=== PATIENT | female | born 1995 | race Caucasian/White ===

== ENCOUNTER 2019-07-03 11:55 | Emergency (ER) | payer SELFPAY ==
--- NOTE | 2019-07-03 12:04 | ED.PDOC ---
History of Present Illness - General Time Seen by Provider: 07/03/19 12:03 Source: patient Additional Information: 23yo F presents with headache, myalgia and fever onset 1-2 days. The patient reports intermittent chills and fever to 101 with associated body aches. She had two bouts of coughing over the past day, but no sustained cough or SOB. She is presently 12 weeks per her report. She has an established OBGYN and has had no complications to date. No known sick contacts. No recent travel. No other reported issues. - History of Present Illness Timing/Duration: yesterday Possible Cause: unknown cause Allergies/Adverse Reactions: Allergies NO KNOWN ALLERGY Allergy (Verified 07/03/19 12:18) Home Medications: Ambulatory Orders Methocarbamol [Robaxin] 750 mg PO BID PRN #20 tab 05/14/15 Metoprolol Succinate [Toprol XL] 25 mg PO QAM #20 tab 05/14/15 Potassium Chloride [K-Tab] 10 meq PO QAM #30 tab 05/14/15 Tramadol HCl 50 mg PO Q6H PRN #20 tab 05/14/15 Promethazine Tab [Phenergan Tablet] 25 mg PO Q4H PRN #12 tab 07/03/19 Review of Systems - Review of Systems Constitutional: States: chills, fever, weakness EENTM: Denies: ear pain, throat pain Respiratory: States: cough. Denies: short of breath Cardiology: Denies: chest pain, palpitations Gastrointestinal/Abdominal: Denies: abdominal pain, diarrhea, nausea, vomiting Genitourinary: Denies: dysuria, frequency Musculoskeletal: States: muscle pain. Denies: back pain, joint swelling, neck pain Skin: States: no symptoms reported Neurological: States: headache. Denies: numbness, weakness Endocrine: States: no symptoms reported Hematologic/Lymphatic: States: no symptoms reported Past Medical History (General) - Patient Medical History Hx Seizures: No Hx Stroke: No Hx Dementia: No Hx Asthma: No Hx of COPD: No Hx Cardiac Disorders: No Hx Congestive Heart Failure: No Hx Pacemaker: No Hx Hypertension: No Hx Thyroid Disease: No Hx Diabetes: No Hx Gastroesophageal Reflux: No Hx Renal Disease: No Hx Cancer: No Hx of HIV: No Hx Hepatitis C: No Hx MRSA: No - Vaccination History Hx Tetanus, Diphtheria Vaccination: Yes Hx Influenza Vaccination: No Hx Pneumococcal Vaccination: No - Social History Hx Tobacco Use: No Hx Chewing Tobacco Use: No Hx Alcohol Use: No Hx Substance Use: No Hx Substance Use Treatment: No Hx Depression: No Hx Physical Abuse: No Hx Emotional Abuse: No Hx Suspected Abuse: No - Female History Hx Last Menstrual Period: 03/23/12 Patient : - unsure Expected Date of Delivery:: 12/22/12 Family Medical History - Family History Mother Living Status: Still Living Hx Family Hypertension: Yes Hx Family;Other: tumors Physical Exam - Physical Exam General Appearance: Alert, Other - Mildly fatigued appearance Eye Exam: bilateral normal ENT Exam: normal ENT inspection Neck: non-tender, full range of motion, supple Respiratory: normal breath sounds, no respiratory distress, no accessory muscle use Cardiovascular/Chest: regular rate, rhythm, no edema Gastrointestinal/Abdominal: non tender, soft Extremity: normal range of motion, non-tender, normal inspection Neurologic: no motor/sensory deficits, alert, normal mood/affect, oriented x 3 Skin Exam: normal color, warm/dry Progress - Progress Progress: DDX: Viral illness, influenza, URI, UTI, COVID-19, complication of , dehydration. Mahesh Puente MD. #[id number] 07/03/19 13:56 Patient feeling improved and would like to go home. We discussed her symptoms and results at length. We discussed current recommendations on self distancing and quarantine, as well as her pending COVID-19 testing. We discussed pathways for follow up. We discussed reasons for return including worsening fever, cough, SOB or any other serious concerns. It was a pleasure to care for the patient today. - Results/Orders Results/Orders: Influenza neg 07/03/19 12:30 SARS-COV2 LOW RISK Stat - Pending at discharge (pt aware) Laboratory Results - last 24 hr 07/03/19 12:35 Urine Color Yellow Urine Appearance Clear Urine pH 6.5 Ur Specific [place] >= 1.030 Urine Protein Negative Urine Glucose (UA) Negative Urine Ketones Negative Urine Blood Negative Urine Nitrite Negative Urine Bilirubin Negative Urine Urobilinogen 0.2 Ur Leukocyte Esterase Trace H Urine RBC 1-3 Urine WBC 0-1 Ur Epithelial Cells 3-5 Amorphous Sediment 1+ Urine Bacteria Rare Urine Mucus Large Last Vital Signs Temp 98.0 F 07/03/19 14:16 Pulse 77 07/03/19 14:16 Resp 18 07/03/19 14:16 BP 117/63 07/03/19 14:16 Pulse Ox 99 07/03/19 14:16 Departure - Departure Clinical Impression: Flu-like symptoms Fever Qualifiers: Fever type: unspecified Qualified Code(s): R50.9 - Fever, unspecified Headache Qualifiers: Headache type: unspecified Headache chronicity pattern: unspecified pattern Intractability: not intractable Qualified Code(s): R51 - Headache Time of Disposition: 13:58 Disposition: Discharge to Home or Self Care Condition: Fair Departure Forms: ED Discharge - Pt. Copy, Patient Portal Self Enrollment Instructions: DI for Fever (Symptom) -- Adult Prescriptions: Promethazine Tab [Phenergan Tablet] 25 mg PO Q4H PRN #12 tab PRN Reason: Nausea Home Medications: Ambulatory Orders Methocarbamol [Robaxin] 750 mg PO BID PRN #20 tab 05/14/15 Metoprolol Succinate [Toprol XL] 25 mg PO QAM #20 tab 05/14/15 Potassium Chloride [K-Tab] 10 meq PO QAM #30 tab 05/14/15 Tramadol HCl 50 mg PO Q6H PRN #20 tab 05/14/15 Promethazine Tab [Phenergan Tablet] 25 mg PO Q4H PRN #12 tab 07/03/19 Additional Instructions: You were seen for fever, headache and body ache. You likely have a viral illness. We tested you for COVID-19 today given your state. This result will not return for several days. We recommend that you abide by current national guidelines for self-isolation and social distancing for 14 days. Contact your PCP or [facility] for more guidance and recommendations.
[2019-07-03 12:18] VITALS: TEMP 98; O2SAT 99
[2019-07-03] MEDS ORDERED: ACETAMINOPHEN 500 MG TAB PO ONE (12:22)
[2019-07-03] MEDS ORDERED: ONDANSETRON ODT (ER DISP) 8 MG TAB PO ONE (12:23)
[2019-07-03] MEDS ORDERED: ONDANSETRON ODT 8 MG TAB SL ONE (12:25)
[2019-07-03 14:17] VITALS: BP 117/63
== END 2019-07-03 14:17 | disposition home or self-care (01) ==
LOC: ER 11:55
DX: J11.1 Influenza due to unidentified influenza virus with other respiratory manifestations (principal); R51 Headache
CPT/HCPCS: 81001; 87502; U0002